=== PATIENT | male | born 1985 | race African-American/Black ===

== ENCOUNTER 2017-02-25 06:58 | Observation (INO) ==
[2017-02-25] MEDS ORDERED: LACTATED RINGERS 1,000 ML IV STA (07:25)
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
[2017-02-25 07:38] LABS: Basophils % 0.1 % (0.0-0.8); Eosinophils # 0.1 10*3/uL (0.0-0.87); Eosinophils % 1.2 % (0.00-10.9); Hemoglobin 14.4 GM/DL (14.0-18.0); Immature Granulocytes % 0.7 %; Immature Granulocytes Absolute 0.06 #; Lymphocytes # 1.9 10*3/uL (1.4-4.0); Lymphocytes % 22.6 % (21.2-54.2); Mean Corpuscular HGB Conc 31.3 GM/DL (32-36); Mean Corpuscular Hemoglobin 28 PG (27-34); Mean Corpuscular Volume 88.5 FL (87-102); Mean Platelet Volume 10.8 FL (9.6-12.0); Monocytes # 0.4 10*3/uL (0.11-0.8); Monocytes % 5.1 % (1.7-12.7); Neutrophils % 70.3 % (38.7-73.9); Platelet Count 175 T/CUMM (130-400); Red Cell Distribution Width 15.1 % (9.3-17.3); White Blood Count 8.5 T/CUMM (4-12)
--- NOTE | 2017-02-25 07:46 | CT Report ---
CT brain Indication: Head injury Comparison: None available Technique: Axial CT imaging of the brain is performed without contrast with 3 mm increments. Findings: No evidence of hemorrhage, mass mass effect midline shift or acute infarct seen. The brain parenchyma attenuation and differentiation appears within normal limits. The ventricles and cisterns are normal in caliber. Laceration injury is seen over right forehead. No other cranial or skull base abnormality is identified. Impression: Soft tissue laceration injury right forehead. No other evidence of abnormality demonstrated. This CT exam was performed using one or more the following dose reduction techniques: Automated exposure control, adjustment of the MA and/or KV according to patient size, or use of iterative reconstruction technique. PROCEDURE INTERPRETED AT [facility] DEPARTMENT OF RADIOLOGY Final Report Signed by: Dr. Efraín Savage
--- NOTE | 2017-02-25 07:47 | CT Report ---
CT cervical spine Indication: Neck pain after injury Comparison: None available Technique: Axial CT imaging of the cervical spine is performed without contrast. Computer reformatting is viewed in the sagittal and coronal planes. Findings: No fracture is seen. Alignment of the cervical spine is within normal limits. Vertebral body heights are normal. No other abnormality is demonstrated. Impression: No evidence of abnormality demonstrated. This CT exam was performed using one or more the following dose reduction techniques: Automated exposure control, adjustment of the MA and/or KV according to patient size, or use of iterative reconstruction technique. PROCEDURE INTERPRETED AT [facility] DEPARTMENT OF RADIOLOGY Final Report Signed by: Dr. Erfaín Savage
--- NOTE | 2017-02-25 07:50 | XRay Report ---
XR chest 1V portable Indication: Chest injury Comparison: One October 2016 Findings: The heart and mediastinum are normal in size and configuration. The pulmonary vascularity is normal in caliber. No lung infiltrates, effusions, pneumothorax or other abnormality is demonstrated. Impression: Normal chest x-ray PROCEDURE INTERPRETED AT [facility] [place] DEPARTMENT OF RADIOLOGY Final Report Signed by: Dr. Efraín Savage
--- NOTE | 2017-02-25 07:51 | XRay Report ---
XR pelvis AP 1 or 2 Views Indication: Pain after injury Comparison: None available Findings: No evidence of fracture seen. The alignment of the joints appears normal. No degenerative change is present. No soft tissue abnormality is seen. Impression: No evidence of abnormality demonstrated PROCEDURE INTERPRETED AT [facility] DEPARTMENT OF RADIOLOGY Final Report Signed by: Dr. Efraín Savage
[2017-02-25 07:58] LABS: Hypochromasia 1+; Ovalocytes Slight; Platelet Estimate Normal
[2017-02-25] MEDS ORDERED: ONDANSETRON 4 MG/2 ML VIAL ONE (07:59)
[2017-02-25] MEDS ORDERED: ONDANSETRON 4 MG/2 ML VIAL IV STA (08:00)
[2017-02-25] MEDS ORDERED: HYDROmorphone 2 MG/1 ML VIAL IV STA (08:00)
[2017-02-25] MEDS ORDERED: HYDROmorphone 2 MG/1 ML VIAL ONE (08:00)
[2017-02-25 08:22] LABS: PT Patient Result 10.3 SECS; Partial Thromboplastin Time 23.1 SECS (0-40)
[2017-02-25 08:30] LABS: Alanine Aminotransferase 34 U/L (16-61); Albumin 4.4 G/DL (3.4-5.0); Alkaline Phosphatase 85 U/L (45-117); Amylase 64 U/L (25-115); Aspartate Amino Transferase 68 U/L (0-37); Blood Urea Nitrogen 18 MG/DL (7-18); Glucose 143 MG/DL (74-106); Osmolality,Calculated 286.1 MOS/KG (273-304); Potassium 3.4 MMOL/L (3.5-5.1); Sodium 142 MMOL/L (136-145)
[2017-02-25] MEDS ORDERED: CLINDAMYCIN INJ 600 MG in PREMIX 1 EACH IV SCH (10:00)
[2017-02-25] MEDS ORDERED: LACTATED RINGERS 1,000 ML IV SCH (10:26)
[2017-02-25] MEDS ORDERED: ONDANSETRON 4 MG/2 ML VIAL IV PRN (10:26)
[2017-02-25 11:13] VITALS: BP 154/88
[2017-02-25] MEDS ORDERED: LIDOCAINE 2%/EPI 20 ML VIAL MISC INJ ONE (11:49)
[2017-02-25] MEDS ORDERED: MUPIROCIN 2% OINT 22 GM TUBE TOP ONE (12:02)
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
== END 2017-02-25 16:00 | disposition home or self-care (01) ==
LOC: N.ED 06:58 → N.EDINP 06:58 → N.5E 10:26
PROVIDERS: ADMIT Otolaryngology; ATTEND Otolaryngology